=== PATIENT | male | born 1945 | race Two or more races ===

== ENCOUNTER 2017-07-02 23:57 | Emergency (ER) | payer MEDICARE, OTHER ==
[~2017-07-02] VITALS: Ht 160 cm; Wt 76.2 kg
--- NOTE | 2017-07-03 00:27 | NUR ---
71 Y/O MALE PLACED IN 2A C/O RIGHT SUDED CHEST PAIN SECONDARY TO A SLIP AND FALL.
[2017-07-03] MEDS ORDERED: LEVO40CA PO (00:37)
[2017-07-03] MEDS ORDERED: FOLI1TAB16 PO (00:37)
[2017-07-03] MEDS ORDERED: CINA30TA2 PO (00:37)
[2017-07-03] MEDS ORDERED: CLOP75TA15 PO (00:37)
[2017-07-03] MEDS ORDERED: LOSA25TA3 PO (00:37)
[2017-07-03] MEDS ORDERED: FERR325T28 PO (00:37)
[2017-07-03] MEDS ORDERED: TAMS-3 PO (00:37)
[2017-07-03] MEDS ORDERED: CARV6.252 PO (00:37)
[2017-07-03] MEDS ORDERED: FURO20TA4 PO (00:37)
[2017-07-03] MEDS ORDERED: PREG150C PO (00:37)
[2017-07-03] MEDS ORDERED: SERT50TA PO (00:37)
[2017-07-03] MEDS ORDERED: TACR0.5C PO (00:37)
[2017-07-03] MEDS ORDERED: PRED2.5T PO (00:37)
[2017-07-03] MEDS ORDERED: OXYC5CAP18 PO (00:37)
[2017-07-03] MEDS ORDERED: ROSU20TA PO (00:37)
[2017-07-03] MEDS ORDERED: DEXL60CA3 PO (00:45)
[2017-07-03] MEDS ORDERED: BLOO-360 IN (00:45)
[2017-07-03] MEDS ORDERED: INSU100V7 SQ (00:45)
[2017-07-03] MEDS ORDERED: CALC-34 PO (00:45)
[2017-07-03] MEDS ORDERED: [UNRECOGNIZED DRUG - OTHER] (00:47)
[2017-07-03] MEDS ORDERED: HYDROMORPHONE 1 MG/1 ML DISP.SYRIN IM ONE (01:00)
[2017-07-03] MEDS ORDERED: ONDANSETRON 4 MG/2 ML VIAL IM ONE (01:00)
[2017-07-03] MEDS ORDERED: HYDROMORPHONE 2 MG/1 ML DISP.SYRIN ONE ×2 (01:13→02:51)
[2017-07-03] MEDS ORDERED: ONDANSETRON 4 MG/2 ML VIAL ONE ×2 (01:13→02:48)
[2017-07-03] MEDS ORDERED: HYDROMORPHONE 1 MG/1 ML DISP.SYRIN IV ONE (02:00)
[2017-07-03] MEDS ORDERED: ONDANSETRON 4 MG/2 ML VIAL IV ONE (02:00)
--- NOTE | 2017-07-03 02:17 | NUR ---
EKG DONE. BLOOD DRAWN AND SENT. H/L PLACED. PT ON OXYGEN 2 LITERS TO MAINTAIN SATS.
--- NOTE | 2017-07-03 02:44 | NUR ---
PT REMEDICATED FOR PAIN.
--- NOTE | 2017-07-03 03:15 | NUR ---
DX - CHEST CONTUSION WITH POSSIBLE OCCULT RIB FRACTURES. ACI WITH RX GIVEN. PT DISCHARGED HOME ACCOMPANIED BY . IS DRIVING PT HOME.
[2017-07-04] MEDS ORDERED: CHOL400T PO (16:42)
[2017-07-04] MEDS ORDERED: FEBU40TA PO (16:42)
[2017-07-04] MEDS ORDERED: INSU100C4 (16:42)
== END 2017-07-03 03:50 | disposition home or self-care (01) ==
LOC: ER 07-03
DX: S22.41XA Multiple fractures of ribs, right side, initial encounter for closed fracture (principal); I12.0 Hypertensive chronic kidney disease with stage 5 chronic kidney disease or end stage renal disease; N18.6 End stage renal disease; Z99.2 Dependence on renal dialysis; I10 Essential (primary) hypertension; E11.9 Type 2 diabetes mellitus without complications; Z95.1 Presence of aortocoronary bypass graft; W18.30XA Fall on same level, unspecified, initial encounter; Y93.89 Activity, other specified; Y92.89 Other specified places as the place of occurrence of the external cause; Y99.8 Other external cause status
CPT/HCPCS: 71101; 93005; A4663; J1170; J2405

== ENCOUNTER 2017-07-04 15:55 | Inpatient (IN) | payer MEDICARE, OTHER ==
[~2017-07-04] VITALS: Ht 160 cm; Wt 80.3 kg
[~2017-07-04 15:55] MED LIST: BLOO-360 IN; CALC-34 PO; CARV6.252 PO; CINA30TA2 PO; CLOP75TA15 PO; DEXL60CA3 PO; FERR325T28 PO; FOLI1TAB16 PO; FURO20TA4 PO; INSU100V7 SQ; LEVO40CA PO; LOSA25TA3 PO; OXYC5CAP18 PO; PRED2.5T PO; PREG150C PO; ROSU20TA PO; SERT50TA PO; TACR0.5C PO; TAMS-3 PO; [UNRECOGNIZED DRUG - OTHER]
--- NOTE | 2017-07-04 16:00 | NUR ---
DR REEDER AT THE BEDSIDE FOR MSE.
[2017-07-04 16:39] LABS: BASOPHILS # (AUTO) 0.1 K/uL (0.0-8.0); BASOPHILS % (AUTO) 0.6 % (0.0-2.0); EOSINOPHILS # (AUTO) 0.1 K/uL (0.0-0.7); EOSINOPHILS % (AUTO) 1.4 % (0.0-7.0); HEMATOCRIT 41.1 % (36.7-47.1); HEMOGLOBIN 13.6 g/dL (12.5-16.3); LYMPHOCYTES # (AUTO) 0.5 K/uL (20.0-40.0); LYMPHOCYTES % (AUTO) 4.8 % (20.5-51.5); MEAN CORPUSCULAR HEMOGLOBIN 27.9 uug (23.8-33.4); MEAN CORPUSCULAR HGB CONC 33 g/dL (32.5-36.3); MEAN CORPUSCULAR VOLUME 84.3 fL (73.0-96.2); MONOCYTES % (AUTO) 9.6 % (0.0-11.0); NEUTROPHILS % (AUTO) 83.6 % (38.5-71.5); PLATELET COUNT (AUTO) 131 K/uL (152-348); RED BLOOD CELL COUNT(AUTO) 4.87 MIL/uL (4.06-5.63); WHITE BLOOD COUNT (AUTO) 10.8 K/uL (3.6-10.2)
[2017-07-04] MEDS ORDERED: FEBU40TA PO (16:42)
[2017-07-04] MEDS ORDERED: INSU100C4 (16:42)
[2017-07-04] MEDS ORDERED: CHOL400T PO (16:42)
[2017-07-04 16:45] LABS: ETHANOL < 3 MG/DL (0-0)
[2017-07-04 16:46] LABS: CARBON DIOXIDE 29 mmol/L (21-32); CHLORIDE 105 mmol/L (98-107); CREATININE 1.8 mg/dL (0.6-1.3); GLUCOSE 65 mg/dL (74-106); POTASSIUM 4.6 mmol/L (3.5-5.1); UREA NITROGEN, BLOOD 37 mg/dL (7-18)
[2017-07-04 16:51] LABS: ALANINE AMINOTRANSFERASE 19 U/L (16-63); ALKALINE PHOSPHATASE 58 U/L (50-136); ASPARTATE AMINOTRANSFERASE 19 U/L (15-37); BILIRUBIN,DIRECT 0.2 mg/dL (0.0-0.2); BILIRUBIN,TOTAL 0.7 mg/dL (0.2-1.0); TOTAL PROTEIN, SERUM 6.9 g/dL (6.4-8.2)
[2017-07-04 16:55] LABS: ACETAMINOPHEN < 2.0 ug/mL (10-30)
--- NOTE | 2017-07-04 17:10 | NUR ---
DR THOMPSON ACCEPTED THE PT. PT IS AWAKE AND SPEAKING TO THE SON.
--- NOTE | 2017-07-04 18:10 | NUR ---
PATIENT ARRIVED ONTO UNIT AND WAS TRANSFERRED TO BED. PATIENT IS MINIMALLY RESPONSIVE. CHECKED BLOOD GLUCOSE LEVEL AND IT WAS 50. ADMINISTERED TWO ORANGE JUICE'S WITH SUGAR. WILL RECHECK SHORTLY.
[2017-07-04 18:15] VITALS: BP 136/79
--- NOTE | 2017-07-04 18:50 | NUR ---
glucose check revealed blood sugar 170.
--- NOTE | 2017-07-04 19:25 | NUR ---
PT RECEIVED IN BED, ASLEEP. WAKES TO NAME. A/OX2. ABLE TO MAKE NEEDS KNOWN. AT BEDSIDE. V/S STABLE. IN NO ACUTE DISTRESS. NO C/O PAIN AT THIS TIME. IV INTACT AND PATENT. ON 3LNC, TOLERATING WELL. AFEBRILE. SINUS RHYTHM 83BPM, WITH FREQUENT PAC'S. PER REQUEST, BS ASSESSED AND IS 160. WILL CONT TO MONITOR FOR CHANGES. HOB ELEVATED. SAFETY MEASURES IMPLEMENTED. CALL LIGHT WITHIN REACH.
[2017-07-04 20:00] VITALS: BP 135/81
[2017-07-04] MEDS ORDERED: CARVEDILOL 6.25 MG TABLET PO SCH (22:15)
[2017-07-04] MEDS ORDERED: ALBUTEROL SULFATE 2.5 MG/3 ML NEBU NEB PRN (22:30)
[2017-07-04] MEDS ORDERED: OSELTAMIVIR PHOSPHATE 75 MG CAPSULE PO ONE (22:30)
[2017-07-04] MEDS ORDERED: MORPHINE SULFATE 2 MG/1 ML DISP.SYRIN IV PRN (22:30)
[2017-07-04] MEDS ORDERED: ACETAMINOPHEN 650 MG SUPP.RECT RC PRN (22:30)
[2017-07-04] MEDS ORDERED: OSELTAMIVIR PHOSPHATE 75 MG CAPSULE ONE (22:37)
[2017-07-04] MEDS ORDERED: DEXTROSE 50% 50 ML DISP.SYRIN IV PRN (22:45)
[2017-07-04] MEDS ORDERED: CARVEDILOL 6.25 MG TABLET ONE (23:11)
[2017-07-04 23:45] VITALS: BP 146/73
[2017-07-04 23:51] VITALS: BP 146/73
[2017-07-05] MEDS ORDERED: PIPERACILLIN/TAZO 2.25 GM VIAL ONE (00:03)
[2017-07-05] MEDS: PIPERACILLIN/TAZOBACTAM/D5W 2.25 G in PREMIXED 1 EACH IV SCH ×4 (00:32→16:38)
[2017-07-05 03:49] LABS: *BILIRUBIN,URIN NEGATIVE (NEGATIVE); *BLOOD, URINE NEGATIVE (NEGATIVE); *CLARITY,URINE CLEAR (CLEAR); *COLOR,URINE AMBER (YELLOW); *KETONES,URINE NEGATIVE (NEGATIVE); *PROTEIN,URINE 2+ (NEGATIVE); *UROBILINOGEN,URINE 0.2 E.U./dl (NORMAL); LEUKOCYTE ESTERASE ,URINE NEGATIVE (NEGATIVE); NITRITE, URINE NEGATIVE (NEGATIVE); PH,URINE 5.5 (5.0-8.0); UGLUCOSE NEGATIVE (NEGATIVE)
[2017-07-05 04:00] VITALS: BP 151/83
[2017-07-05 04:46] LABS: BACTERIA,URINE FEW /HPF (NONE SEEN); RBC,URINE 0-3 /HPF (0-3); SQUAMOUS EPITHELIAL CELL,UR FEW /HPF (NONE SEEN); WBC,URINE 0-3 /HPF (0-3)
[2017-07-05] MEDS: PANTOPRAZOLE SODIUM 40 MG TABLET.DR PO SCH (06:16)
[2017-07-05] MEDS: BLOOD SUGAR DIAGNOSTIC 1 EACH STRIP VI SCH ×4 (06:16→22:21)
--- NOTE | 2017-07-05 06:17 | NUR ---
NON-ADMIN PROTONIX. NEW ADMISSION
[2017-07-05] MEDS ORDERED: hydrALAZINE HCL 10 MG TABLET PO SCH (06:30)
[2017-07-05] MEDS ORDERED: hydrALAZINE HCL 10 MG TABLET ONE (06:50)
--- NOTE | 2017-07-05 07:10 | NUR ---
received report from third shift lieutenant nurse, patient in bed asleep, facemask with 6L O2. Bed in low position, side rails up x2, bed alarm on.
--- NOTE | 2017-07-05 07:23 | NUR ---
END OF SHIFT NOTES. PT SLEPT INTERMITTENTLY THROUGHOUT SHIFT. IN STABLE CONDITION. PT DESATURATING WITH 3LNC 86%, PLACED ON SIMPLE FACE MASK AT 6L, SATTING AT 95%. PT IV ABX INFUSED. ON TELE HE IS SINUS, BUT IN AND OUT OF A-FIB. HYDRALAZINE ADMINISTERED FOR ELEVATED BP 170/86. WILL ENDORSE TO DAYSHIFT. ALL NEEDS ATTENDED. SAFETY MAINTAINED. CALL LIGHT WITHIN REACH.
[2017-07-05] MEDS ORDERED: hydrALAZINE HCL 10 MG TABLET PO PRN (08:30)
[2017-07-05] MEDS: NITROGLYCERIN OINT 1 GM PACKET TP SCH ×3 (08:45→17:05)
[2017-07-05] MEDS ORDERED: BUMETANIDE INJ 2 MG in IV DEXTROSE 5% 42 ML IV ONE (08:45)
[2017-07-05 08:53] LABS: THYROID STIMULATING HORMONE 1.1 mIU/mL (0.358-3.740)
[2017-07-05 08:55] LABS: BILIRUBIN,TOTAL 1.1 mg/dL (0.2-1.0); CREATININE 1.6 mg/dL (0.6-1.3); MAGNESIUM 1.9 mg/dL (1.8-2.4); POTASSIUM 4.6 mmol/L (3.5-5.1); TOTAL PROTEIN, SERUM 6.8 g/dL (6.4-8.2)
[2017-07-05 08:57] LABS: BASOPHILS % (AUTO) 0.4 % (0.0-2.0); EOSINOPHILS # (AUTO) 0.1 K/uL (0.0-0.7); EOSINOPHILS % (AUTO) 0.6 % (0.0-7.0); HEMATOCRIT 43.1 % (36.7-47.1); HEMOGLOBIN 14.3 g/dL (12.5-16.3); LYMPHOCYTES # (AUTO) 0.8 K/uL (20.0-40.0); LYMPHOCYTES % (AUTO) 7.6 % (20.5-51.5); MEAN CORPUSCULAR HEMOGLOBIN 27.8 uug (23.8-33.4); MEAN CORPUSCULAR HGB CONC 33 g/dL (32.5-36.3); MEAN CORPUSCULAR VOLUME 83.9 fL (73.0-96.2); MONOCYTES # (AUTO) 0.9 K/uL (2.0-10.0); MONOCYTES % (AUTO) 8.3 % (0.0-11.0); NEUTROPHILS # (AUTO) 8.8 K/uL (1.8-8.9); NEUTROPHILS % (AUTO) 83.1 % (38.5-71.5); PLATELET COUNT (AUTO) 120 K/uL (152-348); RED BLOOD CELL COUNT(AUTO) 5.13 MIL/uL (4.06-5.63); WHITE BLOOD COUNT (AUTO) 10.6 K/uL (3.6-10.2)
[2017-07-05] MEDS ORDERED: MORPHINE SULFATE 4 MG/1 ML DISP.SYRIN IV PRN (09:00)
[2017-07-05] MEDS: FOLIC ACID 1 MG TABLET PO SCH (09:00)
[2017-07-05] MEDS ORDERED: PREGABALIN 50 MG CAPSULE PO SCH (09:00)
[2017-07-05] MEDS ORDERED: HEPARIN/D5W DRIP 500 ML IV PRN (09:00)
[2017-07-05] MEDS: FETZIMA 40 MG PO SCH (10:00)
[2017-07-05] MEDS ORDERED: VANCOMYCIN IV 1 G in PREMIXED 0 EACH IV ONE (10:00)
[2017-07-05] MEDS: predniSONE 2.5 MG TABLET PO SCH (10:35)
[2017-07-05] MEDS: TACROLIMUS ANHYDROUS 0.5 MG CAPSULE PO SCH ×2 (10:35→17:04)
[2017-07-05] MEDS: CARVEDILOL 6.25 MG TABLET PO SCH ×2 (10:38→21:44)
[2017-07-05] MEDS: CINACALCET HCL 30 MG TABLET PO SCH (10:38)
[2017-07-05] MEDS: FERROUS SULFATE 325 MG TABEC PO SCH ×2 (10:38→17:04)
[2017-07-05] MEDS: ASPIRIN 81 MG TAB.CHEW PO SCH (10:38)
[2017-07-05] MEDS: SERTRALINE HCL 50 MG TABLET PO SCH (10:38)
[2017-07-05] MEDS: CHOLECALCIFEROL 400 UNITS TABLET PO SCH (10:41)
[2017-07-05] MEDS: FUROSEMIDE 40 MG/4 ML VIAL IV SCH ×2 (10:41→21:49)
[2017-07-05] MEDS: CLOPIDOGREL 75 MG TABLET PO SCH (10:43)
--- NOTE | 2017-07-05 11:45 | NUR ---
Gave report to DAYAN nurse that is taking over. Heparin drip calculations faxed to pharmacy. Patient is minimally responsive but swallows when presented with spoonfuls of water and opens eyes. Blood glucose noted to be low 67, and patient desaturates when oxygen face mask is removed. All questions answered to DAYAN nurse. Currently patient is drinking orange juice to increase blood glucose levels.
[2017-07-05 11:57] VITALS: BP 137/70
[2017-07-05] MEDS ORDERED: HEPARIN SODIUM,PORCINE 5,000 UNITS/ML VIAL IV ONE (12:00)
--- NOTE | 2017-07-05 12:19 | NUR ---
heparin 5600 units bolus iv given followed by drip 1200 units/hr at 24ml/hr via pump- will continue to monitor closely
--- NOTE | 2017-07-05 12:45 | NUR ---
temp 101.[address] Valdez with orders- carried out, cooling measures given Tylenol 650mg supp given, family here at bedside, opens eyes when name is called and follows simple commands, blood sugar rechecked earlier- obtained 146, will try to give lunch as able
--- NOTE | 2017-07-05 13:03 | NUR ---
Clinical pharmacy note-Vancomycin dosing per pharmacy S: To start Vancomycin dosing on this patient for suspected infection(no MD note yet) O: BUN 34 Scr 1.6 WBC 10.6 Temp 100.6 A/P: Vancomycin 1gram x1 was given today at 1150. Will continue to dose by random level for now(random is on order for tomorrow am). Will follow the level for further dosing.
--- NOTE | 2017-07-05 13:05 | NUR ---
placed on 4l/nc 02 sat at 95%, ordered pureed diet, more wake, nodding head and smiling at times
[2017-07-05 13:12] LABS: *CREATININE,URINE 91.7 mg/dL (30-125)
[2017-07-05 13:13] LABS: *BILIRUBIN,URIN NEGATIVE (NEGATIVE); *BLOOD, URINE NEGATIVE (NEGATIVE); *CLARITY,URINE CLEAR (CLEAR); *COLOR,URINE YELLOW (YELLOW); *KETONES,URINE NEGATIVE (NEGATIVE); *PROTEIN,URINE 2+ (NEGATIVE); *UROBILINOGEN,URINE 0.2 E.U./dl (NORMAL); LEUKOCYTE ESTERASE ,URINE NEGATIVE (NEGATIVE); NITRITE, URINE NEGATIVE (NEGATIVE); PH,URINE 5.5 (5.0-8.0); UGLUCOSE NEGATIVE (NEGATIVE)
[2017-07-05 13:35] LABS: *URINE TOTAL PROTEIN RANDOM 126.7 mg/dL (<150/24HR)
[2017-07-05 13:40] LABS: BACTERIA,URINE NONE SEEN /HPF (NONE SEEN); MUCUS,URINE FEW /LPF (0-FEW); RBC,URINE 0-3 /HPF (0-3); SQUAMOUS EPITHELIAL CELL,UR FEW /HPF (NONE SEEN); WBC,URINE 0-3 /HPF (0-3)
--- NOTE | 2017-07-05 14:40 | NUR ---
converted to SR in the 80's. no distress noted, will continue to monitor closely
[2017-07-05 15:30] VITALS: BP 137/56
[2017-07-05] MEDS: INSULIN REGULAR, HUMAN 300 UNIT/3 ML VIAL SQ PRN ×2 (17:40→22:35)
--- NOTE | 2017-07-05 18:00 | NUR ---
more awake now, orientedx3, took dinner with minimal supervision, on 3l/nc 02, denies of pain, family here earlier, voided per urinal, all needs attended and met, call light within reach, no distress nted, heparin drip at 1200 units/hr, no bleeding noted
--- NOTE | 2017-07-05 19:15 | NUR ---
PTT 91.7,HOLD HEPARIN DRIP FOR 60 MIN,AND WILL DECREASE RATE BY 250 UNITS TO 950 UNITS/HR AT 2015,AND REPEAT PTT AT 0130.
--- NOTE | 2017-07-05 20:00 | NUR ---
PT SLEEPING ON BED. FAMILY MEMBER ON BEDSIDE. PT VITAL SIGNS WNL. BP 118/61 AR 100. TEMP 98. IV SITE INTACT. WILL CONTINUE TO MONITOR. SAFETY PROVIDED.
[2017-07-05 21:00] VITALS: BP 118/61
[2017-07-05] MEDS: ATORVASTATIN 20 MG TABLET PO SCH (21:40)
[2017-07-05] MEDS: TAMSULOSIN HCL 0.4 MG CAP.SR.24H PO SCH (21:41)
[2017-07-05] MEDS ORDERED: AZITHROMYCIN 250 MG TABLET PO SCH (21:45)
[2017-07-05] MEDS ORDERED: CEFEPIME HCL 1 G in IV DEXTROSE 5% 50 ML IV SCH (21:45)
--- NOTE | 2017-07-05 23:30 | NUR ---
PT COMPLAINT OF PAIN ON HIS LEG. I GAVE TYLENOL FOR HIS PAIN. I CHANGED HIS DIAPER. PT WANTS TO STAND UP AND URINATE. TOLD THE PT THAT HE HAS A DIAPER ON AND WE WILL JUST CHANGE HIM AFTER HE PEE. CALL LIGHT WITH IN REACH. BED ALARM ON. SAFETY AND COMFORT PROVIDED TO THE PT.
[2017-07-05] MEDS: ACETAMINOPHEN 325 MG TABLET PO PRN (23:48)
[2017-07-06] MEDS: NITROGLYCERIN OINT 1 GM PACKET TP SCH ×4 (00:18→18:40)
[2017-07-06] MEDS ORDERED: AZITHROMYCIN 250 MG TABLET ONE (00:24)
--- NOTE | 2017-07-06 01:30 | NUR ---
PTT 50,CONTINUE HEPARIN DRIP AT 950 UNITS/HR, AND CHECK PTT IN AM.
[2017-07-06 04:00] VITALS: BP 104/64
[2017-07-06] MEDS: PANTOPRAZOLE SODIUM 40 MG TABLET.DR PO SCH (06:49)
--- NOTE | 2017-07-06 07:06 | NUR ---
PT AWAKE IN BED. PT BLOOD SUGAR LEVEL IS 114.PT REFUSE TO PUT THE SCD. PT SOMETIMES IS COUGHING. IV INTACT AND PATENT. SAFETY AND COM FORT PROVIDED.
[2017-07-06] MEDS: BLOOD SUGAR DIAGNOSTIC 1 EACH STRIP VI SCH ×4 (07:36→21:20)
[2017-07-06 08:07] LABS: BASOPHILS % (AUTO) 0.6 % (0.0-2.0); EOSINOPHILS # (AUTO) 0.2 K/uL (0.0-0.7); EOSINOPHILS % (AUTO) 2.6 % (0.0-7.0); HEMATOCRIT 38.9 % (36.7-47.1); HEMOGLOBIN 12.9 g/dL (12.5-16.3); LYMPHOCYTES # (AUTO) 0.5 K/uL (20.0-40.0); MEAN CORPUSCULAR HEMOGLOBIN 27.8 uug (23.8-33.4); MEAN CORPUSCULAR HGB CONC 33 g/dL (32.5-36.3); MEAN CORPUSCULAR VOLUME 84.1 fL (73.0-96.2); MONOCYTES # (AUTO) 0.7 K/uL (2.0-10.0); MONOCYTES % (AUTO) 9.8 % (0.0-11.0); NEUTROPHILS # (AUTO) 5.9 K/uL (1.8-8.9); PLATELET COUNT (AUTO) 118 K/uL (152-348); RED BLOOD CELL COUNT(AUTO) 4.62 MIL/uL (4.06-5.63)
[2017-07-06] MEDS: ACETAMINOPHEN 325 MG TABLET PO PRN (08:15)
[2017-07-06 08:24] LABS: BILIRUBIN,TOTAL 1.2 mg/dL (0.2-1.0); CREATININE 1.7 mg/dL (0.6-1.3); MAGNESIUM 1.7 mg/dL (1.8-2.4); POTASSIUM 3.5 mmol/L (3.5-5.1); TOTAL PROTEIN, SERUM 6.1 g/dL (6.4-8.2); VANCOMYCIN,RANDOM 9.9 ug/mL (18.0-26.0)
[2017-07-06 09:01] LABS: WHITE BLOOD COUNT (AUTO) 7.4 K/uL (3.6-10.2)
[2017-07-06] MEDS: ASPIRIN 81 MG TAB.CHEW PO SCH (09:06)
[2017-07-06] MEDS: CHOLECALCIFEROL 400 UNITS TABLET PO SCH (09:07)
[2017-07-06] MEDS: CINACALCET HCL 30 MG TABLET PO SCH (09:07)
[2017-07-06] MEDS: FOLIC ACID 1 MG TABLET PO SCH (09:07)
[2017-07-06] MEDS: TACROLIMUS ANHYDROUS 0.5 MG CAPSULE PO SCH ×2 (09:11→17:55)
[2017-07-06] MEDS: CARVEDILOL 6.25 MG TABLET PO SCH ×2 (09:11→21:03)
[2017-07-06] MEDS: predniSONE 2.5 MG TABLET PO SCH (09:11)
[2017-07-06] MEDS: SERTRALINE HCL 50 MG TABLET PO SCH (09:11)
[2017-07-06] MEDS: FERROUS SULFATE 325 MG TABEC PO SCH ×2 (09:11→17:55)
[2017-07-06] MEDS: FETZIMA 40 MG PO SCH (09:20)
[2017-07-06] MEDS: FUROSEMIDE 40 MG/4 ML VIAL IV SCH (09:21)
[2017-07-06] MEDS: CLOPIDOGREL 75 MG TABLET PO SCH (09:21)
[2017-07-06] MEDS ORDERED: VANCOMYCIN IV 1 G in PREMIXED 0 EACH IV ONE (10:30)
[2017-07-06] MEDS: CEFEPIME HCL 1 G in IV DEXTROSE 5% 50 ML IV SCH ×2 (11:06→21:04)
--- NOTE | 2017-07-06 11:41 | NUR ---
Clinical pharmacy note-Vancomycin dosing per pharmacy S: To continue Vancomycin dosing on this patient for suspected infection(no MD note yet) O: BUN 40 Scr 1.7 WBC 7.4 Temp 99 random: 9.9 today with am labs A/P: Based on random, gave another qgm this am.Random ordered for tomorrow with am labs as scr increased, will check and redose as needed. Will follow
[2017-07-06 11:45] VITALS: BP 100/55
[2017-07-06 12:40] VITALS: BP 113/58
[2017-07-06] MEDS: INSULIN REGULAR, HUMAN 300 UNIT/3 ML VIAL SQ PRN ×3 (12:53→23:03)
[2017-07-06 16:00] VITALS: BP 96/65
[2017-07-06] MEDS ORDERED: MAGNESIUM OXIDE 400 MG TABLET PO ONE (16:15)
[2017-07-06] MEDS: PREGABALIN 50 MG CAPSULE PO SCH (16:17)
--- NOTE | 2017-07-06 17:28 | NUR ---
Nurses Note: Accu-check done @ 1705 was 434, repeated @ [address] John Valdez was paged, waiting for his called order on SEP is 10 units, and to call the MD
[2017-07-06 18:34] VITALS: BP 148/60
[2017-07-06 20:00] VITALS: BP 149/87
[2017-07-06] MEDS: ATORVASTATIN 20 MG TABLET PO SCH (21:02)
[2017-07-06] MEDS: AZITHROMYCIN 250 MG TABLET PO SCH (21:03)
[2017-07-06] MEDS: TAMSULOSIN HCL 0.4 MG CAP.SR.24H PO SCH (21:15)
[2017-07-07] VITALS (8 sets, daily range): BP systolic 105–159; BP diastolic 44–78
[2017-07-07] MEDS: NITROGLYCERIN OINT 1 GM PACKET TP SCH ×4 (00:49→17:47)
[2017-07-07] MEDS: PANTOPRAZOLE SODIUM 40 MG TABLET.DR PO SCH (06:01)
[2017-07-07] MEDS: BLOOD SUGAR DIAGNOSTIC 1 EACH STRIP VI SCH ×4 (06:22→20:54)
--- NOTE | 2017-07-07 07:09 | NUR ---
Pt has done well this shift. Alert, oriented, calm and cooperative. No complaints of shortness of breath or pain. Did call with call light when needed assistance and utilized urinal to void. Reinforced need to call, fall safety, bed in low position, wheels locked, lights adjusted for safety, bed exit alarm is on. Pt did ask if physician might order something "to help with this cough", will pass on to day shift RN. Pt is on FSBS ACHS. Required coverage last pm for BS 287, this morning = 116, advised pt of same and will pass on to day shift also. Noted vancomycin trough level drawn this morning 19.3. No acute changes in ongoing patient assessment, continue to monitor for physiologic changes and pt safety.
[2017-07-07 07:15] LABS: BASOPHILS % (AUTO) 0.6 % (0.0-2.0); EOSINOPHILS # (AUTO) 0.3 K/uL (0.0-0.7); EOSINOPHILS % (AUTO) 4.1 % (0.0-7.0); HEMATOCRIT 36.6 % (36.7-47.1); HEMOGLOBIN 12.5 g/dL (12.5-16.3); LYMPHOCYTES # (AUTO) 0.7 K/uL (20.0-40.0); LYMPHOCYTES % (AUTO) 9.5 % (20.5-51.5); MEAN CORPUSCULAR HEMOGLOBIN 28.2 uug (23.8-33.4); MEAN CORPUSCULAR HGB CONC 34 g/dL (32.5-36.3); MEAN CORPUSCULAR VOLUME 82.4 fL (73.0-96.2); MONOCYTES # (AUTO) 0.8 K/uL (2.0-10.0); MONOCYTES % (AUTO) 11.8 % (0.0-11.0); NEUTROPHILS # (AUTO) 5.2 K/uL (1.8-8.9); PLATELET COUNT (AUTO) 135 K/uL (152-348); RED BLOOD CELL COUNT(AUTO) 4.43 MIL/uL (4.06-5.63)
[2017-07-07 07:40] LABS: CREATININE 1.9 mg/dL (0.6-1.3); MAGNESIUM 1.7 mg/dL (1.8-2.4); PHOSPHOROUS 4.6 mg/dL (2.5-4.9); POTASSIUM 3.5 mmol/L (3.5-5.1); VANCOMYCIN,RANDOM 19.3 ug/mL (18.0-26.0)
[2017-07-07] MEDS: predniSONE 2.5 MG TABLET PO SCH (08:17)
[2017-07-07] MEDS: FOLIC ACID 1 MG TABLET PO SCH (08:17)
[2017-07-07] MEDS: CINACALCET HCL 30 MG TABLET PO SCH (08:18)
[2017-07-07] MEDS: SERTRALINE HCL 50 MG TABLET PO SCH (08:18)
[2017-07-07] MEDS: FERROUS SULFATE 325 MG TABEC PO SCH ×2 (08:18→16:27)
[2017-07-07] MEDS: FUROSEMIDE 20 MG TABLET PO SCH ×2 (08:18→16:27)
[2017-07-07] MEDS: ASPIRIN 81 MG TAB.CHEW PO SCH (08:18)
[2017-07-07] MEDS: TACROLIMUS ANHYDROUS 0.5 MG CAPSULE PO SCH ×2 (08:18→16:26)
[2017-07-07] MEDS: CHOLECALCIFEROL 400 UNITS TABLET PO SCH (08:24)
[2017-07-07] MEDS: FETZIMA 40 MG PO SCH (08:33)
[2017-07-07] MEDS: CLOPIDOGREL 75 MG TABLET PO SCH (08:33)
[2017-07-07] MEDS: CEFEPIME HCL 1 G in IV DEXTROSE 5% 50 ML IV SCH ×2 (08:41→20:38)
--- NOTE | 2017-07-07 08:55 | NUR ---
Patient in bed alert, no s/s of distress noted. O2 sat goes from 82% to 89%, he stated that he is always like that and he is feeling well. NC 2 L was administered for safety, o2 sat 95%. I asked RT to assess him. Will continue monitoring.
[2017-07-07] MEDS: CARVEDILOL 6.25 MG TABLET PO SCH ×2 (10:27→20:35)
[2017-07-07] MEDS: ACETAMINOPHEN 325 MG TABLET PO PRN (11:16)
[2017-07-07] MEDS: INSULIN REGULAR, HUMAN 300 UNIT/3 ML VIAL SQ PRN ×3 (11:20→20:54)
[2017-07-07] MEDS ORDERED: MAGNESIUM OXIDE 400 MG TABLET PO ONE (11:30)
[2017-07-07] MEDS ORDERED: POTASSIUM CHLORIDE 20 MEQ TAB.PRT.SR PO ONE (11:30)
--- NOTE | 2017-07-07 18:49 | NUR ---
PATIENT BP 198/89, HYDRALAZINE WAS GIVEN ORDERED, BP 154/54 NOW. PATIENT BEEN SLEEPING DURING THE DAY INTERMITTENTLY, HE CONTINUES TO DESAT WITHOUT OXYGENATION 90%. NC 2L ON AT THIS MOMENT. AT THE BEDSIDE. SAFETY AND COMFORT PROVIDED DURING THE DAY BY THE STAFF. WILL CONTINUE MONITORING.
[2017-07-07] MEDS ORDERED: FUROSEMIDE 40 MG/4 ML VIAL IV ONE (19:45)
[2017-07-07] MEDS ORDERED: GUAIFENESIN/DEXTROMETHORPHAN 5 ML UDC PO PRN (20:30)
[2017-07-07] MEDS: PREGABALIN 50 MG CAPSULE PO SCH (20:34)
[2017-07-07] MEDS: ATORVASTATIN 20 MG TABLET PO SCH (20:34)
[2017-07-07] MEDS: TAMSULOSIN HCL 0.4 MG CAP.SR.24H PO SCH (20:34)
[2017-07-07] MEDS: AZITHROMYCIN 250 MG TABLET PO SCH (20:35)
[2017-07-07] MEDS: GUAIFENESIN SUGAR FREE 100 MG/5 ML UDC PO PRN (20:38)
[2017-07-07] MEDS ORDERED: GUAIFENESIN SUGAR FREE 100 MG/5 ML UDC ONE (20:53)
[2017-07-08] MEDS: NITROGLYCERIN OINT 1 GM PACKET TP SCH ×2 (00:51→06:31)
[2017-07-08] MEDS: GUAIFENESIN SUGAR FREE 100 MG/5 ML UDC PO PRN ×2 (01:43→06:40)
[2017-07-08] MEDS ORDERED: GUAIFENESIN SUGAR FREE 100 MG/5 ML UDC ONE ×2 (01:58→06:50)
[2017-07-08 03:40] VITALS: BP 150/82
--- NOTE | 2017-07-08 06:02 | NUR ---
NSG: NO ACUTE DISTRESS NOTED. C/O NON PRODUCTIVE COUGH, MEDICATED WITH ROBITUSSIN 10ML. GAVE LASIX 40MG IVP X 1. STARTED ON ZOSYN. CONT WITH IVF. Addendum: 07/08/17 at 0607 by ABIEL COTO RN WRONG PATIENT.
--- NOTE | 2017-07-08 06:07 | NUR ---
nsg: no acute distress noted. denies sob. however, c/o of continuous non productive cough. medicated with robitussin 10ml. also, pt was given lasix 40mg ivp x 1, urinated a total of 900ml of clear yellow urine. cont with treatment plan.
[2017-07-08] MEDS: PANTOPRAZOLE SODIUM 40 MG TABLET.DR PO SCH (06:31)
[2017-07-08] MEDS: BLOOD SUGAR DIAGNOSTIC 1 EACH STRIP VI SCH ×3 (06:40→17:56)
[2017-07-08 07:32] LABS: BASOPHILS # (AUTO) 0.1 K/uL (0.0-8.0); EOSINOPHILS # (AUTO) 0.2 K/uL (0.0-0.7); EOSINOPHILS % (AUTO) 3.7 % (0.0-7.0); HEMATOCRIT 38.6 % (36.7-47.1); HEMOGLOBIN 12.9 g/dL (12.5-16.3); LYMPHOCYTES # (AUTO) 0.9 K/uL (20.0-40.0); LYMPHOCYTES % (AUTO) 14.7 % (20.5-51.5); MEAN CORPUSCULAR HEMOGLOBIN 27.9 uug (23.8-33.4); MEAN CORPUSCULAR HGB CONC 33 g/dL (32.5-36.3); MEAN CORPUSCULAR VOLUME 83.4 fL (73.0-96.2); MONOCYTES # (AUTO) 0.7 K/uL (2.0-10.0); MONOCYTES % (AUTO) 12.8 % (0.0-11.0); NEUTROPHILS # (AUTO) 3.9 K/uL (1.8-8.9); NEUTROPHILS % (AUTO) 67.8 % (38.5-71.5); PLATELET COUNT (AUTO) 144 K/uL (152-348); RED BLOOD CELL COUNT(AUTO) 4.63 MIL/uL (4.06-5.63); WHITE BLOOD COUNT (AUTO) 5.8 K/uL (3.6-10.2)
[2017-07-08 07:42] LABS: BILIRUBIN,TOTAL 0.9 mg/dL (0.2-1.0); CREATININE 1.7 mg/dL (0.6-1.3); MAGNESIUM 1.8 mg/dL (1.8-2.4); PHOSPHOROUS 4.8 mg/dL (2.5-4.9); POTASSIUM 3.5 mmol/L (3.5-5.1); TOTAL PROTEIN, SERUM 6.7 g/dL (6.4-8.2)
[2017-07-08] MEDS: ASPIRIN 81 MG TAB.CHEW PO SCH (08:47)
[2017-07-08] MEDS: CARVEDILOL 6.25 MG TABLET PO SCH (08:48)
[2017-07-08] MEDS: predniSONE 2.5 MG TABLET PO SCH (08:48)
[2017-07-08] MEDS: FERROUS SULFATE 325 MG TABEC PO SCH ×2 (08:48→17:00)
[2017-07-08] MEDS: CHOLECALCIFEROL 400 UNITS TABLET PO SCH (08:48)
[2017-07-08] MEDS: FOLIC ACID 1 MG TABLET PO SCH (08:48)
[2017-07-08] MEDS: CINACALCET HCL 30 MG TABLET PO SCH (08:48)
[2017-07-08] MEDS: SERTRALINE HCL 50 MG TABLET PO SCH (08:49)
[2017-07-08] MEDS: TACROLIMUS ANHYDROUS 0.5 MG CAPSULE PO SCH ×2 (08:49→17:00)
[2017-07-08] MEDS: CEFEPIME HCL 1 G in IV DEXTROSE 5% 50 ML IV SCH (08:51)
[2017-07-08] MEDS: CLOPIDOGREL 75 MG TABLET PO SCH (08:51)
[2017-07-08] MEDS: FETZIMA 40 MG PO SCH (08:51)
[2017-07-08] MEDS ORDERED: LOSARTAN POTASSIUM 25 MG TABLET PO SCH (10:15)
[2017-07-08 12:00] VITALS: BP 130/36
[2017-07-08] MEDS ORDERED: POTASSIUM CHLORIDE 20 MEQ TAB.PRT.SR PO ONE (12:45)
[2017-07-08] MEDS: INSULIN REGULAR, HUMAN 300 UNIT/3 ML VIAL SQ PRN (13:16)
[2017-07-08 16:03] VITALS: BP 116/85
[2017-07-08] MEDS ORDERED: GUAI100S9 PO (16:06)
[2017-07-08] MEDS ORDERED: TAMS-3 PO (16:06)
[2017-07-08] MEDS ORDERED: LEVO250T2 PO (16:06)
[2017-07-08] MEDS ORDERED: ALBU2.5V7 NEB (16:06)
[2017-07-08] MEDS ORDERED: FUROSEMIDE 20 MG TABLET PO SCH (17:00)
--- NOTE | 2017-07-08 18:10 | NUR ---
Pt refused to have pixs updated and states that he needs to leave now. Discharge instructions given to pt and to f/u with PMD within 1 week. E RX sent to their preferred pharmacy. Pt and verbalized understanding. Pt is in no acute distress. delivery sales worker stated that pt has his own o2 tank set up already prn sob. Pt on R/A @ 92%. IV d/c on right hand and right upper midline. Educated pt and of new meds ordered by dr lorenzo - verbalized understanding.
[2017-07-10 12:11] LABS: ALBUMIN 2.8 g/dL (2.9-4.4); ALPHA-1-GLOBULIN 0.3 g/dL (0.0-0.4); ALPHA-2-GLOBULIN 0.8 g/dL (0.4-1.0); BETA GLOBULIN 0.8 g/dL (0.7-1.3); GAMMA GLOBULIN 0.8 g/dL (0.4-1.8); GLOBULIN, TOTAL 2.7 g/dL (2.2-3.9); M-SPIKE Not Observed g/dL (Not Observed)
== END 2017-07-08 17:50 | disposition home health service (06) | DRG 871 ==
LOC: ER 15:56 → TELE 17:49 → TELE-TD 07-05 09:55 → TELE 07-06 11:24
PROVIDERS: ADMIT Internal Medicine; ATTEND Internal Medicine
DX: A41.9 Sepsis, unspecified organism (principal); J69.0 Pneumonitis due to inhalation of food and vomit; I21.A1 Myocardial infarction type 2; J96.21 Acute and chronic respiratory failure with hypoxia; E43 Unspecified severe protein-calorie malnutrition; I50.33 Acute on chronic diastolic (congestive) heart failure; G92 Toxic encephalopathy; E11.22 Type 2 diabetes mellitus with diabetic chronic kidney disease; D68.59 Other primary thrombophilia; T86.12 Kidney transplant failure; I13.0 Hypertensive heart and chronic kidney disease with heart failure and stage 1 through stage 4 chronic kidney disease, or unspecified chronic kidney disease; I48.92 Unspecified atrial flutter; N18.9 Chronic kidney disease, unspecified; D69.6 Thrombocytopenia, unspecified; I25.10 Atherosclerotic heart disease of native coronary artery without angina pectoris; Z98.61 Coronary angioplasty status; Z95.1 Presence of aortocoronary bypass graft; Z79.02 Long term (current) use of antithrombotics/antiplatelets; Z79.899 Other long term (current) drug therapy; Z79.4 Long term (current) use of insulin; Z90.5 Acquired absence of kidney; Z95.818 Presence of other cardiac implants and grafts; T40.605A Adverse effect of unspecified narcotics, initial encounter; Y92.009 Unspecified place in unspecified non-institutional (private) residence as the place of occurrence of the external cause; E89.2 Postprocedural hypoparathyroidism; I69.319 Unspecified symptoms and signs involving cognitive functions following cerebral infarction; F01.50 Vascular dementia, unspecified severity, without behavioral disturbance, psychotic disturbance, mood disturbance, and anxiety; F41.8 Other specified anxiety disorders; Z99.81 Dependence on supplemental oxygen; Z91.81 History of falling; E66.9 Obesity, unspecified; Z68.31 Body mass index [BMI] 31.0-31.9, adult; I48.0 Paroxysmal atrial fibrillation; S22.41XD Multiple fractures of ribs, right side, subsequent encounter for fracture with routine healing; W19.XXXD Unspecified fall, subsequent encounter
CPT/HCPCS: 36415; 70030-TC; 70450; 71010; 76705; 83550; 83735; 83970; 84100; 84155; 84156; 84165; 84300; 84443; 85025; 85730; 87040; 87086; 87400; 92610; 93005; 93307; 97116; 97530; A4663; G0480; G0480-TC; J0692; J1644; J1815; J1940; J2543; J3370; J7050; J7060; J7507; J7512; Q0144